=== PATIENT | male | born 1995 | race Caucasian/White ===

== ENCOUNTER 2018-08-26 13:38 | Emergency (ER) | payer SELFPAY | END 2018-08-26 14:52 | disposition left against medical advice (07) | LOC: UCCORT 13:38 | DX: R68.89 Other general symptoms and signs (principal); Z53.21 Procedure and treatment not carried out due to patient leaving prior to being seen by health care provider ==

== ENCOUNTER 2018-08-27 10:39 | Emergency (ER) | payer BC ==
[2018-08-27 11:06] VITALS: BP 131/60
--- NOTE | 2018-08-27 11:16 | UC ---
General HPI - HPI Summary HPI Summary: AROUND PENDLETON LEXI NOTED A LITTLE SORE THROAT. SORE THROAT NOW WORSE PLUS HX BAD TEETH AND LOWER GUM MORE SWOLLEN. ALSO SPOT ON FACE FOR 2-3 DAYS AND FEVER TO 101. - History of Current Complaint Chief Complaint: UCGeneralIllness Stated Complaint: ORAL COMPLAINT Time Seen by Provider: 08/27/18 11:09 Hx Obtained From: Patient Onset/Duration: Gradual Onset Timing: Constant Pain Intensity: 7 Associated Signs & Symptoms: Positive: Fever, Headache. Negative: Cough, Diarrhea, SOB, Vomiting, Wheezing - Allergy/Home Medications Allergies/Adverse Reactions: Allergies Allergy/AdvReac Type Severity Reaction Status Date / Time No Known Allergies Allergy Verified 08/27/18 11:01 Home Medications: Home Medications Naproxen Sodium [Aleve] 440 mg PO ONCE 08/27/18 [History Confirmed 08/27/18] PMH/Surg Hx/FS Hx/Imm Hx Previously Healthy: Yes - Surgical History Surgery Procedure, Year, and Place: tonsillectomy - Family History Known Family History: Positive: Non-Contributory - Social History Alcohol Use: None Substance Use Type: None Smoking Status (MU): Never Smoked Tobacco Review of Systems All Other Systems Reviewed And Are Negative: Yes Constitutional: Positive: Fever Skin: Positive: Rash Eyes: Positive: Negative ENT: Positive: Sore Throat Respiratory: Positive: Negative Cardiovascular: Positive: Negative Gastrointestinal: Positive: Negative Genitourinary: Positive: Negative Motor: Positive: Negative Neurovascular: Positive: Negative Musculoskeletal: Positive: Negative Neurological: Positive: Headache Psychological: Positive: Negative Is Patient Immunocompromised?: No Physical Exam Triage Information Reviewed: Yes Appearance: Well-Appearing Vital Signs: Initial Vital Signs Temp 99.8 F 08/27/18 11:02 Pulse 100 08/27/18 11:02 Resp 15 08/27/18 11:02 BP 131/60 08/27/18 11:02 Pulse Ox 100 08/27/18 11:02 Vital Signs Reviewed: Yes Eyes: Positive: Conjunctiva Clear ENT: Positive: Pharyngeal erythema, TMs normal, Uvula midline, Other - LIPS DRY AND CRACKED. Negative: Nasal congestion, Nasal drainage, Trismus, Muffled voice , Hoarse voice Dental: Positive: Gross Decay/Caries @, Other: - LOWER ANTERIOR GUM WITH ERYTHEMA, MILD SWELLING AND TENDER BUT NOT FLUCTUANT.. Negative: Abscess @ Neck: Positive: Supple, Nontender, Enlarged Nodes @ - PERITONSILAR NODES Respiratory: Positive: Lungs clear, Normal breath sounds Cardiovascular: Positive: RRR, No Murmur Abdomen Description: Positive: Nontender, No Organomegaly, Soft Bowel Sounds: Positive: Present Musculoskeletal: Positive: ROM Intact Neurological: Positive: Alert Psychological: Positive: Age Appropriate Behavior Skin Exam: Normal Skin: Positive: Rashes - DIME SIZE HONEYCOMB SPOT CHIN AREA. Course/Dx - Course Course Of Treatment: WILL TX PRESUMPTIVELY FOR ORAL BACTERIAL INFECTION. NO CONCERN FOR LUDWIGS ANGINA. WILL TX FOR IMPETIGO. - Differential Dx - Multi-Symptom Differential Diagnoses: Other - STREP THROAT, VIRAL PHARYNGITIS, DENTAL ABSCESS/ GINGIVITIS, IMPETIGO. - Diagnoses Provider Diagnosis: Pharyngitis, Impetigo, Gingivitis Discharge - Sign-Out/Discharge Documenting (check all that apply): Patient Departure All imaging exams completed and their final reports reviewed: No Studies - Discharge Plan Condition: Stable Disposition: HOME Prescriptions: Amoxicillin/Clavulanate TAB* [Augmentin TAB 875*] 875 mg PO BID 10 Days #20 tab Mupirocin 2% OINT* [Bactroban 2 % Oint*] 1 applic TOPICAL BID 7 Days #1 tube Patient Education Materials: Gingivitis (ED), Impetigo (ED), Pharyngitis (ED) Referrals: LA Dick [Medical Doctor] - 5 Days Additional Instructions: CALL [facility] TO BE SEEN SOON POSSIBLE - Billing Disposition and Condition Condition: STABLE Disposition: Home
== END 2018-08-27 11:42 | disposition home or self-care (01) ==
LOC: UCCORT 10:39
DX: J02.9 Acute pharyngitis, unspecified (principal); K05.10 Chronic gingivitis, plaque induced; L01.00 Impetigo, unspecified
CPT/HCPCS: 87651; 99212; G0463